=== PATIENT | male | born 1930 | race Caucasian/White ===

== ENCOUNTER 2016-12-16 12:17 | Emergency (ER) | payer OTHER, MEDICARE ==
[2016-12-16 13:27] LABS: BASO % 0.3 % (0-2); EOS % 3.3 % (0-7); EOSINOPHIL ABSOLUTE COUNT 0.3 tho/cmm (0.0-0.7); HGB-HEMOGLOBIN 14.5 gm/dl (13.5-17.0); IMMATURE GRANULOCYTES ABSOLUTE 0.01 tho/cmm (0-0.03); IMMATURE GRANULOCYTES PERCENT 0.1 % (0-0.3); LYMPH % 29.2 % (20-45); LYMPH ABSOLUTE COUNT 2.5 tho/cmm (0.8-4.5); MCH (MEAN CORPUSCULAR HGB) 31.5 pg (28.0-32.0); MCHC MEAN CORPUSCULAR HGB CONC 33.7 % (32.0-36.0); MCV (MEAN CELL VOLUME) 93.5 fl (82.0-96.0); MEAN PLATELET VOLUME 10.9 cmc (9.4-12.4); MONO % 5.2 % (0-12); MONOCYTE ABSOLUTE COUNT 0.5 tho/cmm (0.0-1.2); NEUTROPHIL ABSOLUTE COUNT 5.3 tho/cmm (1.6-8.0); NEUTROPHIL-AUTOMATED 5.3 tho/cmm (1.6-8.0); NEUTROPHILS % 61.9 % (40-80); PLATELET COUNT 140 tho/cmm (150-450); RED CELL DISTRIBUTION WIDTH 13.2 % (12.4-16.4); WHITE BLOOD COUNT 8.6 tho/cmm (4.0-10.0)
[2016-12-16 13:38] LABS: ANION GAP 14 mmol/L (0-20); BLOOD UREA NITROGEN 49 mg/dl (6-24); CALCIUM 8.9 mg/dl (8.5-10.5); CARBON DIOXIDE-VENOUS 24 mmol/L (22-32); CHLORIDE 107 mmol/l (96-110); CREATININE 1.84 mg/dl (0.60-1.30); GLUCOSE 100 mg/dL (70-110); POTASSIUM 4.9 mmol/L (3.7-5.1); SODIUM 140 mmol/L (135-145); eGFR VALUE FOR BLACK 38 mL/Min
[2016-12-16] MEDS ORDERED: COZAAR50 M1 PO (14:40)
[2016-12-16] MEDS ORDERED: COUMADIN2 M1 PO (14:41)
[2016-12-16] MEDS ORDERED: ZOCOR20 M1 PO (14:41)
[2016-12-16] MEDS ORDERED: COREG12.5 M1 PO (14:41)
[2016-12-16] MEDS ORDERED: ALDACTONE25 M1 PO (14:41)
[2016-12-16] MEDS ORDERED: PROTONIX40 M2 PO (14:41)
[2016-12-16] MEDS ORDERED: NEURONTIN300 M1 PO (14:42)
[2016-12-16] MEDS ORDERED: TYLENOL EXTRA500 M1 PO (14:43)
[2016-12-16] MEDS ORDERED: ALEVE220 M4 PO (14:43)
== END 2016-12-16 15:48 ==
LOC: EDMED 12:17
PROVIDERS: Emergency Medicine
DX: I12.9 Hypertensive chronic kidney disease with stage 1 through stage 4 chronic kidney disease, or unspecified chronic kidney disease (principal); N18.9 Chronic kidney disease, unspecified; Z79.01 Long term (current) use of anticoagulants; Z79.899 Other long term (current) drug therapy